=== PATIENT | female | born 1995 | race Caucasian/White ===

== ENCOUNTER 2021-02-06 06:23 | Emergency (ER) | payer OTHER ==
[2021-02-06] MEDS ORDERED: levETIRAcetam 250 MG Tab PO STA ×2 (06:26→06:46)
--- NOTE | 2021-02-06 06:33 | EDM.PDOC ---
ED HPI GENERAL MEDICAL PROBLEM - General Chief Complaint: Neurological Problem Stated Complaint: MEDICAL VIA [place] Time Seen by Provider: 02/06/21 06:26 Source of Information: Reports: Patient, EMS History Limitations: Reports: No Limitations - History of Present Illness INITIAL COMMENTS - FREE TEXT/NARRATIVE: Caity is a 25-year-old female presenting to the ER via [facility] for evaluation of a seizure. Patient has a history of seizure disorder for which she normally takes Keppra 500 mg twice daily. 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 She has not had a dose of Keppra since yesterday morning. Her awoke this morning about an hour ago to find her having a seizure. She did not bite her tongue or cheeks. She was postictal for about 10 minutes. She comes in by EMS to get a dose of Keppra and a prescription for a few until she returns to [place]. She had no loss of bowel or bladder control. She denies any fever or chills. - Related Data Allergies Allergy/AdvReac Type Severity Reaction Status Date / Time lamotrigine [From Lamictal] Allergy Rash Verified 02/06/21 06:25 Home Meds: Home Meds levETIRAcetam [Keppra] 500 mg PO BID 02/06/21 [History] levETIRAcetam [Keppra] 500 mg PO BID #4 tablet 02/06/21 [Rx] ED ROS GENERAL - Review of Systems Review Of Systems: See Below Constitutional: Reports: No Symptoms HEENT: Reports: No Symptoms Respiratory: Reports: No Symptoms Cardiovascular: Reports: No Symptoms Endocrine: Reports: No Symptoms GI/Abdominal: Reports: No Symptoms : Reports: No Symptoms Musculoskeletal: Reports: No Symptoms Skin: Reports: No Symptoms Neurological: Reports: Seizure Psychiatric: Reports: No Symptoms Hematologic/Lymphatic: Reports: No Symptoms Immunologic: Reports: No Symptoms - Physical Exam Exam: See Below Exam Limited By: No Limitations General Appearance: Alert, No Apparent Distress Eye Exam: Bilateral Eye: EOMI, PERRL Throat/Mouth: Normal Inspection, Normal Lips, Normal Teeth, Normal Gums, Normal Oropharynx, Normal Voice, No Airway Compromise Head Exam: Atraumatic, Normocephalic Neck: Normal Inspection, Supple Respiratory/Chest: No Respiratory Distress, Lungs Clear, Normal Breath Sounds Cardiovascular: Normal Peripheral Pulses, Regular Rate, Rhythm, No Murmur GI/Abdominal: Normal Bowel Sounds, Soft, Non-Tender Neuro Exam (Abbreviated): Alert, Oriented, CN II-XII Intact, Normal Cognition, No Motor/Sensory Deficits Extremities: Normal Inspection, Normal Range of Motion Psychiatric: Normal Affect, Normal Mood Skin Exam: Warm, Dry Course - Orders/Labs/Meds Orders: Active Orders 24 hr Category Date Time Status levETIRAcetam [Keppra] Med 02/06/21 06:38 Stat 500 mg PO ONETIME STA Meds: Medications Discontinued Medications Generic Name Dose Route Start Last Admin Trade Name Freq PRN Reason Stop Dose Admin Levetiracetam 500 mg 02/06/21 06:26 02/06/21 06:33 Levetiracetam 250 Mg Tab PO 02/06/21 06:27 500 mg ONETIME STA Administration - Re-Assessments/Exams Free Text/Narrative Re-Assessment/Exam: 02/06/21 06:30 patient was given a dose of her Keppra 500 mg p.o. and a small prescription that she can fill if any pharmacies are open today. Departure - Departure Time of Disposition: 06:45 Disposition: Home, Self-Care 01 Clinical Impression: Seizure disorder - Discharge Information Prescriptions: levETIRAcetam [Keppra] 500 mg PO BID #4 tablet Instructions: Seizure, Adult Forms: ED Department Discharge Care Plan Goals: I have provided you with a prescription for 4 tablets of Keppra 500 mg twice daily. - Problem List & Annotations (1) Seizure disorder SNOMED Code(s): 815403570 Code(s): G40.909 - EPILEPSY, UNSP, NOT INTRACTABLE, WITHOUT STATUS EPILEPTICUS Status: Acute Priority: Medium Current Visit: Yes - Problem List Review Problem List Initiated/Reviewed/Updated: Yes - My Orders Last 24 Hours: My Active Orders 02/06/21 06:38 levETIRAcetam [Keppra] 500 mg PO ONETIME STA - Assessment/Plan Last 24 Hours: My Active Orders 02/06/21 06:38 levETIRAcetam [Keppra] 500 mg PO ONETIME STA
[2021-02-06] MEDS ORDERED: levETIRAcetam 500 MG/5 ML Solution ML 473 ml Bottle PO STA (06:38)
== END 2021-02-06 08:33 | disposition home or self-care (01) ==
LOC: JP.ED 06:23
DX: G40.909 Epilepsy, unspecified, not intractable, without status epilepticus (principal); Z88.8 Allergy status to other drugs, medicaments and biological substances; Z79.899 Other long term (current) drug therapy
CPT/HCPCS: 99284; A9270